=== PATIENT | male | born 1965 | race African-American/Black ===

== ENCOUNTER 2020-09-24 09:36 | Emergency (ER) | payer MEDICAID ==
[~2020-09-24] VITALS: Ht 185.4 cm; Wt 109.1 kg
[2020-09-24] MEDS ORDERED: LISI-893 PO (10:38)
[2020-09-24] MEDS ORDERED: LISINOPRIL 10 MG TABLET PO ONE (10:45)
[2020-09-24] MEDS ORDERED: AMOX TR/POT CLAV 875 MG/125 MG TABLET PO ONE (10:45)
[2020-09-24] MEDS ORDERED: IBUPROFEN 600 MG TABLET PO ONE (10:45)
[2020-09-24] MEDS ORDERED: AmLODIPine BESYLATE 5 MG TABLET PO ONE (11:45)
[2020-09-24 12:31] VITALS: BP 159/79
== END 2020-09-24 13:11 | disposition home or self-care (01) ==
LOC: EMS 09:38
DX: I10 Essential (primary) hypertension (principal); M79.641 Pain in right hand; F17.210 Nicotine dependence, cigarettes, uncomplicated
CPT/HCPCS: 99284; Z7502; Z7610

== ENCOUNTER 2020-10-01 11:47 | Emergency (ER) | payer MEDICAID ==
[~2020-10-01] VITALS: Ht 185.4 cm; Wt 109.1 kg
[~2020-10-01 11:47] MED LIST: LISI-893 PO
[2020-10-01] MEDS ORDERED: IBUPROFEN 600 MG TABLET PO ONE (12:30)
[2020-10-01 13:03] VITALS: BP 162/81
== END 2020-10-01 13:10 | disposition home or self-care (01) ==
LOC: EMS 11:50
DX: R26.2 Difficulty in walking, not elsewhere classified (principal); I10 Essential (primary) hypertension; F17.210 Nicotine dependence, cigarettes, uncomplicated
CPT/HCPCS: 99282; Z7502; Z7610